=== PATIENT | male | born 2000 | race African-American/Black ===

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

== ENCOUNTER 2018-03-15 08:56 | Day surgery (SDC) | payer OTHER ==
[~2018-03-15 08:56] MED LIST changes: -ARIP5TA PO; -DEPA500T2 PO; +LR 1,000 ML IV
[2018-03-15] MEDS ORDERED: LIDOCAINE 1% MDV 20ML VIAL (08:57)
[2018-03-15] MEDS ORDERED: ROPIvacaine 0.5% 30 ML INJECTION (J2795 PER 1MG) (08:57)
[2018-03-15] MEDS ORDERED: dexameTHASONE 10 MG/1 ML VIAL PRES.FREE (J1100) (08:57)
[2018-03-15] MEDS ORDERED: KETOROLAC 60 MG/2 ML VIAL (J1885) As Ordered (09:23)
[2018-03-15] MEDS ORDERED: LIDOCAINE 2% INJ 100 MG/5 ML SDV (FOR ANES.) As Ordered (09:23)
[2018-03-15] MEDS ORDERED: dexameTHASONE 4 MG/ML 1ML VIAL (J1100) As Ordered (09:23)
[2018-03-15] MEDS ORDERED: BUPIVACAINE/DEXTROSE 0.75% 2 ML AMP As Ordered (09:23)
[2018-03-15] MEDS ORDERED: PROPOFOL 500 MG/50 ML VIAL As Ordered (09:23)
[2018-03-15] MEDS ORDERED: PHENYLEPHRINE INJ 10MG/ML VIAL (J2370) As Ordered (09:23)
[2018-03-15] MEDS ORDERED: ONDANSETRON 4MG/2ML VIAL (J2405) As Ordered (09:23)
[2018-03-15] MEDS ORDERED: MIDAZOLAM INJ 2 MG/2 ML VIAL (J2250) As Ordered ×2 (09:24→11:37)
[2018-03-15] MEDS ORDERED: fentaNYL 100 MCG/2 ML INJECTION (J3010) As Ordered ×3 (09:24→15:24)
[2018-03-15] MEDS ORDERED: ROPIvacaine 0.5% 30 ML INJECTION (J2795 PER 1MG) As Ordered (10:45)
[2018-03-15] MEDS ORDERED: PHENYLephrine HCL 500 MCG/5 ML (100MCG/ML) SYRINGE (J2370) As Ordered ×3 (11:18→14:10)
[2018-03-15] MEDS: MIDAZOLAM INJ 2 MG/2 ML VIAL (J2250) IV ×2 (11:49→11:57)
[2018-03-15] MEDS: fentaNYL 100 MCG/2 ML INJECTION (J3010) IV ×6 (11:49→17:30)
[2018-03-15] MEDS ORDERED: ROCURONIUM BROMIDE 50 MG/5 ML VIAL As Ordered (12:50)
[2018-03-15] MEDS ORDERED: HYDROmorphone HCL 2 MG/ML 1ML VIAL (J1170) As Ordered (13:14)
[2018-03-15] MEDS ORDERED: ESMOLOL INJ 100MG/10ML VIAL As Ordered (13:18)
[2018-03-15] MEDS: ceFAZolin 1GM INJ (J0690 PER 500MG) As Ordered (13:46)
[2018-03-15] MEDS ORDERED: METOPROLOL 5 MG/5 ML VIAL As Ordered (13:48)
[2018-03-15] MEDS ORDERED: GLYCOPYRROLATE INJ 0.2 MG/ML 2 ML VIAL As Ordered (13:51)
[2018-03-15] MEDS ORDERED: NEOSTIGMINE 10 MG/10 ML VIAL (J2710) As Ordered (13:51)
[2018-03-15] MEDS ORDERED: MORPHINE 10 MG/ML 1ML VIAL (J2270) IV (17:00)
[2018-03-15] MEDS ORDERED: LR 1,000 ML IV ×2 (17:00→17:30)
[2018-03-15] MEDS: PERCOCET 5MG/325MG TAB PO ×2 (17:15→17:45)
[2018-03-15] MEDS ORDERED: MORPHINE 4 MG/ML 1ML VIAL/SYRINGE (J2270) IV (17:30)
[2018-03-15] MEDS ORDERED: NORCO, ANEXSIA 5/325MG TABLET (HYDROcodone/ACETAMINOPHEN) PO ×2 (17:30)
[2018-03-15] MEDS: ONDANSETRON 4MG/2ML VIAL (J2405) IV (17:34)
== END 2018-03-15 19:55 | disposition home or self-care (01) ==
LOC: M SDC 08:56
DX: S83.511A Sprain of anterior cruciate ligament of right knee, initial encounter (principal); S83.421A Sprain of lateral collateral ligament of right knee, initial encounter; S83.211A Bucket-handle tear of medial meniscus, current injury, right knee, initial encounter; X50.0XXA Overexertion from strenuous movement or load, initial encounter; Y93.89 Activity, other specified; Y92.89 Other specified places as the place of occurrence of the external cause; Y99.8 Other external cause status; F41.9 Anxiety disorder, unspecified; F32.9 Major depressive disorder, single episode, unspecified; Z72.0 Tobacco use
CPT/HCPCS: 29888

== ENCOUNTER → 2018-08-08 | Outpatient (CLI) | payer MEDICAID, SELFPAY ==
[~2018-08-08] MED LIST changes: +ARIP1TAB6 PO; +DEPA500T2 PO; +IBUP-1022 PO; -LR 1,000 ML IV; +NAPR-855 PO; +OLAN5TAB; +PRAZ1CAP; +SERT-155
== END ==
LOC: M OUTALCOH 08:24
PROVIDERS: ATTEND Psychiatry & Neurology Psychiatry
DX: Z13.89 Encounter for screening for other disorder (principal); F12.20 Cannabis dependence, uncomplicated

== ENCOUNTER 2018-09-07 13:14 | Emergency (ER) | payer OTHER, SELFPAY ==
[~2018-09-07] VITALS: Ht 175.3 cm; Wt 68.6 kg
[2018-09-07 14:37] VITALS: BP 131/79
--- NOTE | 2018-09-08 09:16 | REP ---
Right wrist four views : Comparison is the right hand dated 02/04/2018. There is a fracture in the shaft of the ring finger metacarpal as an interval change. There is no dislocation. Mineralization and joint spaces otherwise are unremarkable. There are no calcifications or foreign bodies. Electronically Signed by Bridger Mike MD 09/07/2018 02:43 P
--- NOTE | 2018-09-08 09:17 | REP ---
Right hand four views: Comparison is the right hand is study dated 12/06/2017. There is a ring finger metacarpal shaft fracture, as a change from the prior study. There is no dislocation. Mineralization and joint spaces are unremarkable. There are no calcifications or foreign bodies. Electronically Signed by Bridger Mike MD 09/07/2018 02:44 P
== END 2018-09-07 14:40 | disposition home or self-care (01) ==
LOC: M ED 13:14
DX: S62.324A Displaced fracture of shaft of fourth metacarpal bone, right hand, initial encounter for closed fracture (principal); W22.09XA Striking against other stationary object, initial encounter; Y92.143 Cell of prison as the place of occurrence of the external cause; Y93.9 Activity, unspecified; Y99.9 Unspecified external cause status

== ENCOUNTER 2019-12-02 15:14 | Emergency (ER) | payer SELFPAY ==
[~2019-12-02] VITALS: Ht 175.3 cm; Wt 73.1 kg
[2019-12-02 15:14] VITALS: BP 128/81
[~2019-12-02 15:14] MED LIST changes: -SERT-155; +SERT50TA29
== END 2019-12-02 16:10 | disposition left against medical advice (07) ==
LOC: M ED 15:14
DX: Z53.21 Procedure and treatment not carried out due to patient leaving prior to being seen by health care provider (principal)

== ENCOUNTER 2020-12-15 20:17 | Emergency (ER) | payer SELFPAY ==
[~2020-12-15] VITALS: Ht 177.8 cm; Wt 75.0 kg
[~2020-12-15 20:17] MED LIST changes: +OLAN1TAB16; -OLAN5TAB
[2020-12-15 20:18] VITALS: BP 140/84
== END 2020-12-15 21:07 | disposition left against medical advice (07) ==
LOC: M ED 20:17
DX: Z53.21 Procedure and treatment not carried out due to patient leaving prior to being seen by health care provider (principal)

== ENCOUNTER 2021-12-25 06:54 | Emergency (ER) | payer SELFPAY ==
[~2021-12-25] VITALS: Ht 177.8 cm; Wt 78.8 kg
[2021-12-25 08:16] LABS: RSV AMPLIFICATION NEGATIVE (NEGATIVE)
[2021-12-25 08:27] VITALS: BP 134/94
== END 2021-12-25 08:51 | disposition home or self-care (01) ==
LOC: M ED 06:54
DX: U07.1 COVID-19 (principal); F17.200 Nicotine dependence, unspecified, uncomplicated

== ENCOUNTER 2022-04-14 11:20 | Emergency (ER) | payer SELFPAY ==
[~2022-04-14] VITALS: Ht 177.8 cm; Wt 78.6 kg
[2022-04-14] MEDS ORDERED: ACET160L16 PO (11:36)
[2022-04-14] MEDS ORDERED: guaiFENesin SYRUP 200MG 10ML UDC PO ONE (13:00)
[2022-04-14] MEDS ORDERED: GUAI100L6 PO (13:20)
[2022-04-14 13:21] VITALS: BP 129/83
== END 2022-04-14 13:39 | disposition home or self-care (01) ==
LOC: M ED 11:20
DX: J09.X2 Influenza due to identified novel influenza A virus with other respiratory manifestations (principal); Z20.89 Contact with and (suspected) exposure to other communicable diseases; F31.9 Bipolar disorder, unspecified; F43.10 Post-traumatic stress disorder, unspecified; F90.0 Attention-deficit hyperactivity disorder, predominantly inattentive type; F17.200 Nicotine dependence, unspecified, uncomplicated

== ENCOUNTER 2024-05-25 03:44 | Emergency (ER) | payer BC, SELFPAY ==
[~2024-05-25] VITALS: Ht 175.3 cm; Wt 77.2 kg
[~2024-05-25 03:44] MED LIST changes: +ACET160L16 PO; +GUAI100L6 PO
[2024-05-25 03:49] VITALS: BP 152/89; TEMP 98.3; O2SAT 98
[2024-05-25 04:55] LABS: HEMATOCRIT 44.1 % (42.0-52.0); HEMOGLOBIN 15.1 g/dl (13.5-17.5); MEAN CORPUSCULAR HEMOGLOBIN 32.4 pg (27.0-33.0); MEAN CORPUSCULAR HGB CONC 34.2 g/dl (32.0-36.5); MEAN CORPUSCULAR VOLUME 94.6 fl (80.0-96.0); PLATELET COUNT, AUTOMATED 304 10^3/uL (150-450); RED BLOOD COUNT 4.66 10^6/uL (4.30-6.10)
[2024-05-25 05:03] LABS: AMPHETAMINES LEVEL URINE NEGATIVE (NEGATIVE); BARBITURATES URINE NEGATIVE (NEGATIVE); BENZODIAZEPINES URINE NEGATIVE (NEGATIVE); COCAINE METABOLITE URINE NEGATIVE (NEGATIVE); METHADONE URINE NEGATIVE (NEGATIVE); OPIATES URINE NEGATIVE (NEGATIVE); PHENCYCLIDINE URINE NEGATIVE (NEGATIVE)
[2024-05-25 05:06] LABS: ETHYL ALCOHOL (ETHANOL) < 0.003 % (0.000-0.010)
[2024-05-25 05:07] LABS: SALICYLATE LEVEL < 3.0 MG/DL (<30)
[2024-05-25 05:08] LABS: ALBUMIN 4.3 G/DL (3.2-5.2); ALKALINE PHOSPHATASE 63 U/L (40-129); ALT/SGPT 32 U/L (7.0-40); AST/SGOT 22 U/L (<34); BILIRUBIN,DIRECT 0.2 MG/DL (<0.4); BILIRUBIN,TOTAL 0.4 MG/DL (0.3-1.2); BLOOD UREA NITROGEN 13 MG/DL (9-23); CALCIUM LEVEL 9.9 MG/DL (8.5-10.1); CARBON DIOXIDE LEVEL 27 MMOL/L (20-31); CHLORIDE LEVEL 107 MMOL/L (98-107); CREATININE FOR GFR 0.81 MG/DL (0.70-1.30); GLOMERULAR FILTRATION RATE > 60.0 (>60); GLUCOSE, FASTING 100 MG/DL (60-100); POTASSIUM SERUM 3.6 MMOL/L (3.5-5.1); SODIUM LEVEL 143 MMOL/L (136-145); TOTAL PROTEIN 8.2 G/DL (5.7-8.2)
[2024-05-25 05:10] LABS: THYROID STIMULATING HORMONE 0.577 uIU/ML (0.55-4.78)
[2024-05-25 05:16] LABS: CANNABINOIDS URINE POSITIVE (NEGATIVE)
== END 2024-05-25 09:37 | disposition home or self-care (01) ==
LOC: M ED 03:44
DX: F43.20 Adjustment disorder, unspecified (principal); F12.10 Cannabis abuse, uncomplicated; Z79.1 Long term (current) use of non-steroidal anti-inflammatories (NSAID); Z79.899 Other long term (current) drug therapy